=== PATIENT | female | born 1955 | race Caucasian/White ===

== ENCOUNTER → 2023-12-17 09:10 | Outpatient (REF) | payer MEDICARE, OTHER, SELFPAY | LOC: RAD 09:10 | PROVIDERS: ATTENDING PHYSICIAN Family Medicine | DX: M89.9 Disorder of bone, unspecified (principal) | CPT/HCPCS: 78306; A9503 ==

== ENCOUNTER → 2024-01-14 09:14 | Outpatient (REF) | payer MEDICARE, OTHER, SELFPAY | LOC: PAVMRI 09:14 | PROVIDERS: ATTENDING PHYSICIAN Family Medicine | DX: M89.9 Disorder of bone, unspecified (principal) | CPT/HCPCS: 72157; A9575 ==

== ENCOUNTER → 2024-01-29 11:27 | Outpatient (REF) | payer MEDICARE, OTHER, SELFPAY | LOC: PAVMRI 11:27 | PROVIDERS: ATTENDING PHYSICIAN Physician Assistant; FAMILY PHYSICIAN Family Medicine | DX: K85.91 Acute pancreatitis with uninfected necrosis, unspecified (principal) | CPT/HCPCS: 74183; A9575 ==

== ENCOUNTER → 2025-10-14 07:40 | Outpatient (REF) | payer MEDICARE, OTHER, SELFPAY ==
[2025-10-14 09:28] LABS: Hematocrit 42.3 % (37.0-47.0); Hemoglobin 13.6 g/dL (12.0-16.0); Mean Corp Hgb Conc. 32.2 g/dL (33.0-37.0); Mean Corpuscular Volume 89.8 fL (81.0-99.0); Nucleated Red Blood Cells % 0 %; Platelet Count 297 10^3/uL (130-400); Red Cell Dist. Width 12.8 % (11.5-14.5)
[2025-10-14 10:42] LABS: Blood Urea Nitrogen 13 mg/dl (7-17); Calcium 9.8 mg/dl (8.4-10.2); Carbon Dioxide 32 mmol/L (22-30); Chloride 101 mmol/L (98-107); Glucose 73 mg/dl (70-99); Potassium 4.8 mmol/L (3.5-5.1); Sodium 139 mmol/L (135-145); eGFR > 60.00
== END ==
LOC: REG 07:40
PROVIDERS: ATTENDING PHYSICIAN Orthopaedic Surgery; FAMILY PHYSICIAN Family Medicine
DX: Z01.818 Encounter for other preprocedural examination (principal)
CPT/HCPCS: 36415; 80048; 85025; 93005